=== PATIENT | female | born 1970 | race Caucasian/White ===

== ENCOUNTER 2024-07-19 05:07 | Emergency (ER) | payer OTHER, SELFPAY ==
[2024-07-19 05:17] VITALS: BP 116/82
[2024-07-19 06:32] VITALS: BMI 24.6
--- NOTE | 2024-07-19 08:43 | ED.GENMED ---
History of Present Illness
General
Chief Complaint: Ear Problem
Source: patient
Exam Limitations: none
Time Seen by Provider: 07/19/24 08:08
Nursing documentation reviewed up to this point in time: agreed with
History of Present Illness
History of Present Illness:
pt is a 53 y/o F
h/o HTN, GERD
here with L ear pressure/neck pain and feeling like she hears her heart beat in her L ear since last night
she says she didn't sleep well at all becuase of this
she now feels a dull headache
2 weeks ago started with URI sxs, fever, cough; presumed it was the flu but was not tested
pt has had lingering cough and feels some R rib pain with coughing
she doesn't have chest pain, palptiations, shortness of breath
last night when this started she checked her HR which was 70s, a little high for her, hr usually 50s
she thought maybe her BP was elevated but it was normal since arrival
she has not had any significant room spinning dizziness, off balance feeling, slurred speech, confusion, facial pain, jaw pain, ear pain, ear drainage, hearing loss, double vision
no neck truama
no chiropractor
no FHX of aneurysm
Past History
Past History
ED Past Medical History: GERD and HTN
ED Past Surgical History: Other (left breast biopsy)
Social History
Tobacco: Non-smoker
Alcohol: Occasional
Drug: None
Personal:
Living: with family
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
Family History
Family History: Hypertension; Negative CAD
Review of Systems
Review of Systems
Allergies reviewed?: Yes
All Other Systems: Not applicable
Phy Exam
Physical Exam
Physical Exam:
No signs of trauma GENERAL: Alert , in no apparent distress
HEAD: NCAT
EYE: pupils equal and reactive, no nystagmus, no photophobia
NECK: Supple,full rom, nontender
ENT: o/p clr, mmm.
ear normal
nontender
no mastoid tenderness
hearing intact
CARDIAC: Regular rate and rhythm . no edema
LUNGS: Clear breath sounds bilaterally, no acute respiratory distress, no wheezes/rales/rhonchi
CHEST WALL: right ribs nontender
ABDOMEN: Soft, without focal tenderness, no r/g, no cvat
NEUROLOGICAL: Alert and orientedx 4, cn intact, no facial asymmetry, 5/5 strength in UE/LE, sensation intact, romberg neg, ambulates without assistance, neg pronator drift
SKIN: Warm and dry, skin intact.
MUSCULOSKELETAL: No edema, well perfused.
PSYCH: Normal and appropriate interaction.
Course
Orders/Labs/Results
Orders:
Orders
07/19/24 08:40
Electrocardiogram (*1) Urgent
Reason for Study: Chest Pain
EKG- Treatment ONCE
07/19/24 08:41
CT Head & Neck Angio W/wo IV Urgent
Comment:
Reason For Exam: L ear pressure, neck pain, lightheadedness
Cardiac Monitoring- Treatment ONCE
Ribs, Right 3 View W/PA Chest [CR Ribs-right 3 Vw W/pa Chest*] Urgent
Comment:
Reason For Exam: R rib pain, cough
07/19/24 09:04
Complete Blood Count/With Diff Urgent
Comprehensive Metabolic Panel Urgent
Troponin I Urgent
07/19/24 10:31
Ketorolac [Toradol] 15 mg IV NOW STA
Abnormal Lab Results
07/19/24
09:04
Carbon Dioxide 32 H mmol/L
(22-30)
07/19/24 09:04
07/19/24 09:04
Vital Signs
Initial and Last Documented VS:
Initial Vital Signs
Temp Pulse Resp BP Pulse Ox
36.7 C 68 18 116/82 99
07/19/24 05:17 07/19/24 05:17 07/19/24 05:17 07/19/24 05:17 07/19/24 05:17
Last Documented Vital Signs
Temp Pulse Resp BP Pulse Ox
36.7 C 59 14 111/72 100
07/19/24 05:17 07/19/24 10:45 07/19/24 10:45 07/19/24 11:00 07/19/24 10:45
MDM/Problems Addressed
Differential Diagnosis Includes:
pulstatile tinnitus, aneurysm, avm, dissection, brain tumor, eustachian tube dysfucntion, OM, anxiety
MDM/Problems Addressed:
53 y/o F
h/o htn, anxiety
here with feeling ofeharing heart beat in her L ear
started last night
didn't sleep
no dizziness
no trauma, neck painbut she feels some fullness in her L side of her face/ear
had recnt URI but only cough remains
when she coughs she has R pleurtiic pain
no sob, chest pain, signfiicatn headache, vomiting, dizziness, blanace problems, double vision, confusion
seems mildly anxious
unremarkable exam
intact hearing
TMs normal
canals are narrow but no swelling
no mastoid tenderness
no trismus
normal neck mvoement
mild R rib pain but no tenderness
lungs clear
ekg normal nonischemic
trop neg
labs unreamrakble
cta neg
recommend flonase and zyrtec
consider ENT f/u and steorids
*Critical Care Note
Total Time (30-74mins, 75-104mins- exclusive of procedures): Not Applicable
ED Attending Note
-
Portions of this chart may have been created with voice recognition software.� Occasional wrong word or��sound alike� substitutions may have occurred due to the inherent limitations of voice recognition software.
Discharge Plan
Departure
Patient Disposition: Home (Routine Discharge)
Date of Disposition: 07/19/24
Time of Disposition: 10:36
Patient with high blood pressure during this ER visit?: No
Condition: Fair
Discharge Problem:
Pulsatile tinnitus
Instructions: Tinnitus (ringing in the ears)
Prescriptions:
New
fluticasone propionate [24 Hour Allergy Relief] 50 mcg/actuation spray,suspension
1 spray intranasal DAILY Qty: 16 0RF
cetirizine [Zyrtec] 10 mg tablet
10 mg PO DAILY Qty: 10 0RF
No Action
lisinopril 5 MG tablet
5 mg PO DAILY
Vitamin D3
2,000 unit PO DAILY
trazodone
50 mg PO HS
pantoprazole
40 mg PO DAILY
Referrals:
Danny Hackett MD [Family Provider] - Tomorrow
Activity Restrictions/Additional Instructions:
YOU HAVE NO SIGNS OF VASCULAR CAUSES OF YOUR SYMPTOMS
YOUR EKG AND TROPONIN WERE ALSO NORMAL RULING OUT A HEART ATTACK
THIS COULD BE A PROBLEM WITH EUSTACIAN TUBE
TRY FLONASE TWICE AD AY FOR A WEEK
YOU CAN ALSO TRY TAKING ZYRTEC ONCE A DAY WELL
YOU SHOULD SEE EAR NOSE AND THROAT DOCTOR FOR FOLLOW UP
RETURN FOR : SEVERE SYMPTOMS, PASSING OUT, SEVERE HEADACHE, DOUBLE VISION, OR ANY COCNERNS.
Interventions
Interventions:
*Risk Screen - Suicide Last Done: 07/19/24 05:43
*General Assessment Last Done: 07/19/24 05:43
*Neglect/Abuse Screening Last Done: 07/19/24 05:43
ED- Fall Risk Assessment Last Done: 07/19/24 10:35
*ED COVID-19 Vaccine History Last Done: 07/19/24 05:42
*Nursing Disposition Last Done: 07/19/24 10:35
Discharge Date and Time
Discharge Date/Time: 07/19/24 10:50
Print Language: DANISH
[2024-07-19 09:03] VITALS: BP 104/61
[2024-07-19 09:29] LABS: % Basophils 0.6 % (0-2); % Immature Granulocytes 0.4 % (0-0.5); % Lymphocytes 42.8 % (20.5-51.1); % Monocytes 6.9 % (1.7-9.3); % Neutrophils 48.3 % (42.2-75.2); Absolute Eosinophils 0.1 10^3/uL (0-0.7); Absolute Lymphocytes 2.2 10^3/uL (1.2-3.4); Absolute Monocytes 0.4 10^3/uL (0.1-0.6); Absolute Neutrophils 2.5 10^3/uL (1.4-6.5); Hemoglobin 12.8 g/dL (12.0-16.0); Mean Corp Hgb Conc. 33.7 g/dL (33.0-37.0); Mean Corpuscular Hgb 29.6 pg (27.0-31.0); Mean Corpuscular Volume 87.8 fL (81.0-99.0); Mean Platelet Volume 9.6 fL (7.4-10.4); Nucleated Red Blood Cells % 0 %; Platelet Count 357 10^3/uL (130-400); Red Blood Cell Count 4.33 10^6/uL (4.20-5.40); Red Cell Dist. Width 12.5 % (11.5-14.5); White Blood Cell Count 5.2 10^3/uL (4.8-10.8)
[2024-07-19 09:39] LABS: ALT (SGPT) 24 U/L (0-35); AST (SGOT) 24 U/L (14-36); Albumin 4.1 g/dl (3.5-5.0); Alkaline Phosphatase 69 U/L (38-126); Blood Urea Nitrogen 10 mg/dl (7-17); Calcium 9.3 mg/dl (8.4-10.2); Carbon Dioxide 32 mmol/L (22-30); Chloride 103 mmol/L (98-107); Estimated Creatinine Clearance 95 ml/min; Glucose 99 mg/dl (70-99); Potassium 4.5 mmol/L (3.5-5.1); Sodium 138 mmol/L (135-145); Total Bilirubin 1.1 mg/dl (0.2-1.3); Total Protein 6.5 g/dl (6.3-8.2); eGFR > 60.00
[2024-07-19 09:55] LABS: Troponin I < 0.012 ng/ml
[2024-07-19 11:00] VITALS: BP 111/72
[2024-07-19] MEDS: TORADOL 15 MG IV (11:03)
== END 2024-07-19 10:50 | disposition home or self-care (01) ==
LOC: EMR 05:07
PROVIDERS: Physician Assistant; EMERGENCY PHYSICIAN Emergency Medicine; FAMILY PHYSICIAN Internal Medicine
DX: H93.A2 Pulsatile tinnitus, left ear (principal); M54.2 Cervicalgia; R07.81 Pleurodynia; R51.9 Headache, unspecified; R05.9 Cough, unspecified; R42 Dizziness and giddiness; I10 Essential (primary) hypertension; K21.9 Gastro-esophageal reflux disease without esophagitis; F41.9 Anxiety disorder, unspecified; Z88.8 Allergy status to other drugs, medicaments and biological substances
CPT/HCPCS: 99285; 96374; 70496; 70498; 71101; 80053; 84484; 85025; 93005; Q9967